=== PATIENT | male | born 1995 ===

== ENCOUNTER 2018-04-27 19:27 | Observation (INO) | payer OTHER ==
[2018-04-27] VITALS (7 sets, daily range): BP systolic 111–133; BP diastolic 63–85
[~2018-04-27] VITALS: Ht 172.7 cm; Wt 69.2 kg
[~2018-04-27 19:27] MED LIST changes: -HYDR-4309 PO; -IOPAMIDOL 76% 75 ML INFUS BTL 75 ML ONE; -KET10 PO; -[UNRECOGNIZED DRUG - OTHER]
[2018-04-27] MEDS ORDERED: [UNRECOGNIZED DRUG - OTHER] (19:53)
[2018-04-27] MEDS ORDERED: cefOXitin/DEX(*) 2GM/50ML PREM 50 ML IVPB ONE (20:15)
[2018-04-27] MEDS ORDERED: ROPIVACAINE 0.2% 20 ML VIAL ONE (20:18)
--- NOTE | 2018-04-27 20:19 | General Surgery 1 H&P ---
History of Present Illness Chief Complaint right lower quadrant pain History of Present Illness 23 yo male with a one day history of right lower quadrant pain. he has associated nausea and vomiting. he has anorexia. pain is persistent and worse with movement. he was seen at urgent care. wbc elevated at [address] shows edematous appendix. History Other Past Surgeries: none Home Meds Reported Medications [Nausea Tablet] No Conflict Check 04/27/18 Albuterol Sulfate (PROVENTIL HFA) 6.7 Gm Inh, 1-2 PUFF INH 3-4XD, INH 08/09/17 Allergies: Coded Allergies: No Known Drug Allergies (Unverified , 01/24/17) Review of Systems All Systems Reviewed/Normal: Yes Exam Vital Signs Date Time Temp Pulse Resp B/P (MAP) Pulse Ox O2 Delivery O2 Flow Rate FiO2 04/27/18 19:38 98.2 84 133/85 (101) 96 Room Air General Appearance: Alert, Awake GI: Other (soft tender with guarding in the right lower quadrant) Assessment and Plan Problems: (1) Appendicitis Assessment & Plan: laparoscopic appendectomy Copies to: QIANA WESTBROOK MD Venous Thromboembolism Antithrombotics Is Pt On Any Antithrombotics?: No QIANA WESTBROOK MD Apr 27, 2018 20:19
[2018-04-27] MEDS ORDERED: NS 0.9% IVPB ONE (20:20)
[2018-04-27] MEDS ORDERED: NORMOSOL R SOLN(*) 1000 ML BAG 1,000 ML IV ONE (20:20)
[2018-04-27] MEDS ORDERED: CEFEPIME HCL 2 GM VIAL 2 GM in NS(*) 0.9% 100 ML ADDVANT BAG 100 ML IVPB ONE (20:20)
[2018-04-27] MEDS ORDERED: CEFOXITIN SOD IVPB ONE (20:20)
--- NOTE | 2018-04-27 20:22 | Post Operative Progress Note ---
Post Operative Progress Note Date: Apr 27, 2018 Time: 21:42 Surgeon: dyan Anesthesia: dr dupree Pre-Op Diagnosis: appendicitis Post-Op Diagnosis: same Procedure(s): laparoscopic appendectomy QIANA WESTBROOK MD Apr 27, 2018 20:22
[2018-04-27] MEDS ORDERED: HYDR-4309 PO (20:23)
[2018-04-27] MEDS ORDERED: KET10 PO (20:23)
[2018-04-27] MEDS ORDERED: MIDAZOLAM 2 MG/2 ML VIAL ONE (20:25)
[2018-04-27] MEDS ORDERED: fentaNYL CITR 250 MCG/5 ML AMP ONE (20:25)
--- NOTE | 2018-04-27 20:25 | Short(Outpt) Discharge Summary ---
Discharge Summary Reason for Hosp/Final Diag: (1) Appendicitis Hospital Course & Plan: laparoscopic appendectomy Departure Discharge to: Home Discharge Instructions Home Meds Active Scripts Hydrocodone Bit/Acetaminophen (NORCO 5-325 TABLET) 1 Each Tablet, 1 EACH PO Q4H Y for PAIN, #30 TAB Prov:QIANA WESTBROOK MD 04/27/18 Ketorolac Tromethamine (KETOROLAC TROMETHAMINE) 10 Mg Tab, 10 MG PO Q6H, #16 TAB Prov:QIANA WESTBROOK MD 04/27/18 Reported Medications [Nausea Tablet] No Conflict Check 04/27/18 Albuterol Sulfate (PROVENTIL HFA) 6.7 Gm Inh, 1-2 PUFF INH 3-4XD, INH 08/09/17 Diet: Regular Activity: As Tolerated Special Instructions: ice to incision for 48 hours remove bandage and shower tuesday to see me in one week, call [phone] for apt QIANA WESTBROOK MD Apr 27, 2018 20:24
[2018-04-27] MEDS ORDERED: KETAMINE HCL 200 MG/20 ML MDV ONE (20:26)
[2018-04-27] MEDS ORDERED: LIDOCAINE MPF 1% 5 ML VIAL ONE (20:28)
[2018-04-27] MEDS ORDERED: PROPOFOL EMUL(*) 10MG/ML 20 ML 20 ML ONE (20:28)
[2018-04-27] MEDS ORDERED: DEXAMETHASONE SOD PHOS 10MG/ML ONE (20:28)
[2018-04-27] MEDS ORDERED: HALOPERIDOL LACT 5 MG/ML VIAL IM ONE (20:37)
[2018-04-27] MEDS ORDERED: KETOROLAC 30 MG/ML VIAL ONE (20:58)
[2018-04-27] MEDS ORDERED: SUGAMMADEX SOD 200 MG/2 ML SDV ONE (21:00)
[2018-04-27] MEDS ORDERED: APAP/HYDROCODONE 325/5 TAB PO PRN (21:45)
[2018-04-27] MEDS ORDERED: fentaNYL CITR 100 MCG/2 ML AMP ONE (21:58)
[2018-04-27] MEDS: NORMOSOL R SOLN(*) 1000 ML BAG 1,000 ML IV PRN (22:40)
[2018-04-28] VITALS (7 sets, daily range): BP systolic 108–135; BP diastolic 57–87; Ht 172.7 cm; Wt 69.2 kg
[2018-04-28] MEDS: APAP/HYDROCODONE 325/5 TAB PO PRN ×5 (00:24→23:17)
[2018-04-28] MEDS ORDERED: KETOROLAC 30 MG/ML VIAL IVP SCH ×2 (03:00)
[2018-04-28] MEDS: ONDANSETRON 4 MG/2 ML VIAL IVP PRN ×2 (05:00→12:16)
[2018-04-28] MEDS ORDERED: METOCLOPRAMIDE 10 MG TAB PO ONE (06:00)
--- NOTE | 2018-04-28 06:00 | General Surgery Progress Note ---
Subjective Progress Notes Subjective pt complains of nausea, pain controlled Physical Exam Vital Signs Date Time Temp Pulse Resp B/P (MAP) Pulse Ox O2 Delivery O2 Flow Rate FiO2 04/28/18 05:58 98.1 04/28/18 02:00 94 12 04/28/18 01:00 128/78 (95) 95 Room Air General Appearance: Alert, Awake GI: Soft and Non-Tender (tender at incisions no hematoma palpable) Assessment and Plan Problems: (1) Appendicitis Assessment & Plan: laparoscopic appendectomy 04/28/18 will stop toradol and try reglan, hopefully home later today Exam Sepsis Risk: No Definite Risk QIANA WESTBROOK MD Apr 28, 2018 06:00
[2018-04-28 06:30] LABS: PLATELET COUNT, AUTOMATED 274 K/uL (150-450)
[2018-04-28] MEDS: NORMOSOL R SOLN(*) 1000 ML BAG 1,000 ML IV PRN (08:44)
[2018-04-28] MEDS ORDERED: SCOPOLAMINE 1.5 MG PATCH TD ONE (13:40)
--- NOTE | 2018-04-28 13:47 | NACHTIGAL APPY ---
EVENT DATE: April 27, 2018 SURGEON: Gonzalez Ordonez MD ANESTHESIOLOGIST: Du Crabtree M.D. ANESTHESIA: director of strategic sales: Staff PREOPERATIVE DIAGNOSIS Acute appendicitis. POSTOPERATIVE DIAGNOSIS Acute appendicitis. PROCEDURE PERFORMED Laparoscopic appendectomy. DESCRIPTION OF PROCEDURE The patient was placed in the supine position and given general anesthetic. The abdomen was prepped and draped in a sterile fashion. We anesthetized the skin with 0.2 ropivacaine and made a small incision above the umbilicus and inserted a Veress needle. The abdomen was insufflated with CO2. We then placed a 5 mm port in the left lower quadrant under direct vision and a 10 mm in the suprapubic region.We then placed the patient in Trendelenburg rotated to the left. We went to the right lower quadrant and identified acutely inflamed appendix. The mesoappendix was divided with the harmonic scalpel at the appendiceal-cecal junction. We then placed 0-Chromic loop at the appendiceal- cecal junction. We placed two 0-PDS EndoLoops distal to this. We cut between the two PDS EndoLoops. We placed the appendix in an EndoPouch and removed it from the field. We inspected for bleeding. We had perfect hemostasis and had a good tie on the appendiceal stump. We removed the ports under direct vision and the left lower quadrant port had bleeding so we put a [id number] stitch of 0 Vicryl using suture passer. This secured the hemostasis. We then also put a stitch of 0 Vicryl in the suprapubic fascia as well. We suctioned, irrigated and inspected for bleeding. At this time, we had perfect hemostasis on the abdominal wall. The subcutaneous tissue was reapproximated with 4-0 Maxon. Steri-strips and sterile bandage were placed. [facility]ITAL[facility]
[2018-04-29] MEDS: ONDANSETRON 4 MG/2 ML VIAL IVP PRN ×2 (02:48→10:32)
[2018-04-29 03:24] VITALS: BP 133/70
[2018-04-29] MEDS: APAP/HYDROCODONE 325/5 TAB PO PRN (06:15)
[2018-04-29] MEDS ORDERED: ONDA4TAB PO (07:48)
--- NOTE | 2018-04-29 07:53 | General Surgery Progress Note ---
Subjective Progress Notes Subjective No pain, but still having low volume emesis. He is tolerating water, but has not tolerated any solid food. Physical Exam Vital Signs Date Time Temp Pulse Resp B/P (MAP) Pulse Ox O2 Delivery O2 Flow Rate FiO2 04/29/18 03:24 98.8 74 14 133/70 (91) 93 Room Air General Appearance: Alert, Awake, No Acute Distress Neuro: No Gross deficits Eyes: PERRLA ENT: Moist Mucous Membranes Cardiovascular: Regular Rate and Rhythm Respiratory: No Respiratory Distress : Other (soft, NT/ND, incisions clean/dry, steri strips intact) Extremities: Soft and Non Tender, Warm, Perfused Integumentary: Skin Intact without Lesion / Mass Psych: Alert & Oriented X3 Result Diagram: 04/28/18 0615 Monitor Interpretation: Normal Sinus Rhythm Assessment and Plan Problems: (1) Appendicitis Assessment & Plan: POD#2 from lap appy, pain controlled, ambulating, still has persistent nausea. Will increase mobility, zofran PRN, possible dispo in PM. Time Spent: < 30 min Exam Sepsis Risk: No Definite Risk EUGENIA TAPIA MD Apr 29, 2018 07:53
[2018-04-29 09:00] VITALS: BP 118/75
[2018-04-29 12:39] VITALS: BP 121/71
[2018-05-01] MEDS ORDERED: PATCH REMOVAL 1 EA TP SCH (13:45)
== END 2018-04-29 13:50 | disposition home or self-care (01) ==
LOC: INTOOBSV 19:27 → MED 19:27
PROVIDERS: ADMIT Surgery; ATTEND Surgery
DX: K35.80 Unspecified acute appendicitis (principal)
CPT/HCPCS: 36415; 44970; 85025; 88304; G0378; G0379; J0694; J1100; J1630; J1885; J2001; J2250; J2405; J2704; J2795; J3010; J3490; J7050; J8597

== ENCOUNTER → 2018-04-27 | Outpatient (REF) | payer OTHER ==
[~2018-04-27] MED LIST: ALB6.7R INH; HYDR-4309 PO; KET10 PO; ONDA4TAB PO; [UNRECOGNIZED DRUG - OTHER]
[2018-04-27 17:43] LABS: PLATELET COUNT, AUTOMATED 324 K/uL (150-450)
== END ==
PROVIDERS: ATTEND Nurse Practitioner Family
DX: R11.10 Vomiting, unspecified (principal)
CPT/HCPCS: 82040; 82150; 82247; 82310; 82374; 82435; 82565; 82947; 83690; 84075; 84132; 84155; 84295; 84450; 84460; 84520; 85025

== ENCOUNTER → 2018-04-27 | Outpatient (CLI) | payer OTHER ==
[~2018-04-27] MED LIST changes: +IOPAMIDOL 76% 75 ML INFUS BTL 75 ML ONE; -ONDA4TAB PO
--- NOTE | 2018-04-27 19:22 | RADIOLOGY IMAGING REPORT ---
FACILITY: [facility] PATIENT NAME: aTrik Fitzgerald : 1995 MR: [id number] V: [id number] EXAM DATE: ORDERING PHYSICIAN: MOON WATSON TECHNOLOGIST: Location: [facility] Patient: Tarik Fitzgerald : 1995 Visit/Account:[id number] Date of Sevice: 04/27/2018 COMPUTED TOMOGRAPHY OF THE Abdomen and Pelvis with CONTRAST INDICATION: Right lower quadrant pain. TECHNIQUE: Contiguous axial 3.[address] images were obtained through the abdomen and pelvis after 75 c c [id number]. Coronal and sagittal reformatted images were submitted. COMPARISON: None pertinent. FINDINGS: Lung bases: The lung bases are clear. Liver and hepatic vasculature: No focal liver lesion. Gallbladder and bile ducts: Normal gallbladder. Spleen: Normal spleen. Pancreas: Normal pancreas. Adrenals: Normal adrenals. Kidneys, ureters and bladder: No hydronephrosis or collecting system obstruction. Normal-appearing b ladder. Retroperitoneum and aorta: Normal caliber aorta. GI tract, mesentery and peritoneum: No bowel obstruction. No free fluid or free air. The appendix is at the anterolateral margin of the right psoas muscle and measures 1 cm in maximal dimension. The wal ls are edematous. There is no perforation or surrounding inflammation. Prostate: Unremarkable. Bones and soft tissues: No acute osseous abnormality. IMPRESSION: 1. The appendix measures 1 cm, and the wall is edematous. There is no surrounding inflammation. No pe rforation or abscess. In the appropriate clinical context, the findings are suspicious for early appe ndicitis. Results were called to Dr. MOON WATSON at 04/27/2018 7:14 PM. One of the following dose optimization techniques was utilized in the performance of this exam: Autom ated exposure control; adjustment of the mA and/or kV according to the patient's size; or use of an i terative reconstruction technique. Specific details can be referenced in the facility's radiology C T exam operational policy. Report Dictated By: Yany Duncan MD at 04/27/2018 7:00 PM Report E-Signed By: Yany Duncan MD at 04/27/2018 7:17 PM WSN:[id number]
== END ==
LOC: CT 18:12
PROVIDERS: ATTEND Nurse Practitioner Family
DX: R93.5 Abnormal findings on diagnostic imaging of other abdominal regions, including retroperitoneum (principal)
CPT/HCPCS: 74177; Q9967